=== PATIENT | female | born 1975 | race Two or more races ===

== ENCOUNTER 2019-01-08 08:00 | Outpatient (CLI) | payer MEDICAID | END 2019-01-08 23:59 | disposition home or self-care (01) | LOC: LAB.R 08:00 | PROVIDERS: ATTEND Physician Assistant | DX: R10.2 Pelvic and perineal pain (principal) | CPT/HCPCS: 87086 ==

== ENCOUNTER 2019-01-15 08:00 | Outpatient (CLI) | payer MEDICAID ==
[2019-01-15 13:28] LABS: BASOPHILS % (AUTO) 0.2 %; EOSINOPHILS # (AUTO) 0.1 10^3/uL (0.0-0.7); EOSINOPHILS % (AUTO) 0.9 %; HGB - HEMOGLOBIN 11.7 g/dL (12.0-16.0); LYMPHOCYTES # (AUTO) 1.7 10^3/uL (1.5-3.5); LYMPHOCYTES % (AUTO) 24.4 %; MEAN CORPUSCULAR HEMOGLOBIN 27.2 pg (27.0-31.0); MEAN CORPUSCULAR HGB CONC 33.3 g/dL (32.0-36.0); MEAN CORPUSCULAR VOLUME 81.6 fL (81.0-99.0); MEAN PLATELET VOLUME 7.7 fL (7.9-10.8); MONOCYTES # (AUTO) 0.4 10^3/uL (0.0-1.0); MONOCYTES % (AUTO) 5.6 %; NEUTROPHILS # (AUTO) 4.8 10^3/uL (1.5-6.6); NEUTROPHILS % (AUTO) 68.9 %; PLT - PLATELET COUNT 364 10^3/uL (130-450); RED CELL DISTRIBUTION WIDTH 14.8 % (12.0-15.0); WHITE BLOOD COUNT 6.9 x10^3/uL (4.8-10.8)
[2019-01-15 13:33] LABS: ALBUMIN 3.8 g/dL (3.2-5.5); ALBUMIN/GLOBULIN RATIO 1.1 (1.0-2.2); ALKALINE PHOSPHATASE 77 IU/L (42-121); ALT ALANINE AMINOTRANSFERASE 15 IU/L (10-60); AST ASPARTATE AMINOTRANSFERASE 22 IU/L (10-42); BILIRUBIN,TOTAL 0.6 mg/dL (0.2-1.0); BUN - BLOOD UREA NITROGEN 14 mg/dL (6-20); CALCIUM 9.1 mg/dL (8.5-10.3); CARBON DIOXIDE - CO2 22 mmol/L (21-32); CHLORIDE 106 mmol/L (101-111); CHOL/HDL RATIO 5.5 (<4.4); CHOLESTEROL 159 mg/dL; CREATININE 0.6 mg/dL (0.4-1.0); GFR - MDRD 110 (>89); GLUCOSE 90 mg/dL (70-100); HDL CHOLESTEROL 29 mg/dL; LDL CHOLESTEROL,CALCULATED 90 mg/dL; LDL/HDL RATIO 3.1 (<4.4); SODIUM 137 mmol/L (135-145); TOTAL PROTEIN 7.2 g/dL (6.7-8.2); VLDL CHOLESTEROL 40 mg/dL
[2019-01-15 14:09] LABS: HB2 TOTAL 12.6 g/dL; HEMOGLOBIN A1C 0.41 g/dL; HEMOGLOBIN A1C % 5.1 % (4.6-6.2)
== END 2019-01-15 23:59 | disposition home or self-care (01) ==
LOC: LAB.WCP 08:00
PROVIDERS: ATTEND Physician Assistant
DX: Z00.00 Encounter for general adult medical examination without abnormal findings (principal)
CPT/HCPCS: 36415; 80053; 80061; 83036; 83721; 84443; 85025

== ENCOUNTER 2019-01-29 07:20 | Outpatient (CLI) | payer OTHER ==
--- NOTE | 2019-01-29 10:28 | Ultrasound Report ---
Reason: PELVIC PAIN,LEFT Procedure Date: 01/29/2019 Accession Number: [id number] / [id number] Procedure: US - Pelvic w/Transvaginal CPT Code: FULL RESULT: EXAM: PELVIC ULTRASOUND EXAM DATE: 01/29/2019 08:00 AM. CLINICAL HISTORY: Pelvic pain, left. COMPARISON: CT 06/13/2015. TECHNIQUE: Realtime transabdominal pelvic scan performed to identify the uterus and adnexa and as an overview of other pelvic structures, followed by transvaginal scan to provide greater detail of the uterus and adnexa, with static image documentation. FINDINGS: Uterus: 16.5 x 10.0 x 13.7 cm, volume 1190 cc. Anteverted position. Enlarged in size with globular appearance, fibroid replaced. Masses: A dominant 13.2 x 8.3 x 11.9 cm fundal mass, most likely fibroids detected. Endometrium: 0.6 mm. Very limited partial visualization due to the fibroid. Cervix: Unremarkable. Right Ovary: Not seen, reportedly surgically absent. Left Ovary: 3.3 x 2.0 x 2.7 cm, volume 9.1 cc. Limited visualization with no abnormality detected. Free Fluid: None. Other: None. IMPRESSION: Enlarged fibroid uterus. RADIA
== END 2019-01-29 07:21 | disposition home or self-care (01) ==
LOC: DI 07:20
PROVIDERS: ATTEND Physician Assistant
DX: D25.9 Leiomyoma of uterus, unspecified (principal)
CPT/HCPCS: 76830; 76856

== ENCOUNTER 2019-03-05 10:29 | Outpatient (CLI) | payer OTHER ==
[2019-03-06 12:11] LABS: HEPATITIS B SURFACE ANTIGEN NON-REACTIVE (NON-REACTIVE); HEPATITIS C ANTIBODY NON-REACTIVE (NON-REACTIVE); HIV AG/AB 4TH GEN NON-REACTIVE (NON-REACTIVE)
== END 2019-03-05 10:30 | disposition home or self-care (01) ==
LOC: LAB 10:29
PROVIDERS: ATTEND Obstetrics & Gynecology
DX: R10.2 Pelvic and perineal pain (principal); Z20.2 Contact with and (suspected) exposure to infections with a predominantly sexual mode of transmission
CPT/HCPCS: 36415; 81599; 86592; 86803; 87340; 87389

== ENCOUNTER 2019-11-22 09:36 | Emergency (ER) | payer OTHER ==
[2019-11-22 10:13] LABS: BASOPHILS % (AUTO) 0.4 %; EOSINOPHILS # (AUTO) 0.3 10^3/uL (0.0-0.7); EOSINOPHILS % (AUTO) 3.6 %; HGB - HEMOGLOBIN 13.2 g/dL (12.0-16.0); LYMPHOCYTES # (AUTO) 1.7 10^3/uL (1.5-3.5); LYMPHOCYTES % (AUTO) 24.2 %; MEAN CORPUSCULAR HEMOGLOBIN 28.8 pg (27.0-31.0); MEAN CORPUSCULAR HGB CONC 32.7 g/dL (32.0-36.0); MEAN CORPUSCULAR VOLUME 88.2 fL (81.0-99.0); MEAN PLATELET VOLUME 9.2 fL (7.9-10.8); MONOCYTES # (AUTO) 0.3 10^3/uL (0.0-1.0); MONOCYTES % (AUTO) 4.2 %; NEUTROPHILS # (AUTO) 4.8 10^3/uL (1.5-6.6); NEUTROPHILS % (AUTO) 66.9 %; PLT - PLATELET COUNT 308 10^3/uL (130-450); RED BLOOD COUNT 4.58 10^6/uL (4.20-5.40); WHITE BLOOD COUNT 7.2 x10^3/uL (4.8-10.8)
--- NOTE | 2019-11-22 10:15 | XRAY Report ---
Reason: Chest pain Procedure Date: 11/22/2019 Accession Number: [id number] / [id number] Procedure: XR - Chest 1 View X-Ray CPT Code: 84060 Final Report FULL RESULT: EXAM: CHEST RADIOGRAPHY EXAM DATE: 11/22/2019 10:06 AM. CLINICAL HISTORY: Chest pain. COMPARISON: None. TECHNIQUE: 1 view. FINDINGS: Lungs/Pleura: No focal opacities evident. No pleural effusion. No pneumothorax. Mediastinum: Heart size and mediastinal contour are within normal limits. Other: None. IMPRESSION: 1. No acute disease in the chest. RADIA
[2019-11-22 10:22] LABS: ALBUMIN/GLOBULIN RATIO 1.1 (1.0-2.2); BILIRUBIN,TOTAL 0.6 mg/dL (0.2-1.0); CALCIUM 9.1 mg/dL (8.5-10.3); CREATININE 0.7 mg/dL (0.4-1.0); TOTAL PROTEIN 7.8 g/dL (6.7-8.2)
--- NOTE | 2019-11-22 11:18 | ED Physician Documentation ---
History of Present Illness - Stated complaint Stated Complaint: SOA LEFT ARM PX - Chief complaint Chief Complaint: Cardiac - Additonal information Additional information: This is a 44-year-old female who presents with arm pain for several weeks, as well as shortness of breath. Patient states that she has had some achiness in herLeft forearm for several months, this comes and goes. She has also for last several weeks had intermittent shortness of breath which will completely resolve between episodes. She denies wheezing, And states that when episodes come on she sometimes feels that she can'ttake a deep enough breath. This will resolve and then she will be back to feeling normal. She has had no leg swelling, no history of blood clots, no hemoptysis, no cough, no fever. She denies known cardiac history. The arm pain and shortness of breath seems separate and that they will occur at different times of each other, and sometimes will occur at the same time. This morning she had a feeling of shortness of breath and chest discomfort, and she continued to have the arm symptoms, when she called into clinic they told her to get checked out here in the emergency department. Review of Systems Constitutional: denies: Fever Nose: denies: Rhinorrhea / runny nose Cardiac: reports: Chest pain / pressure Respiratory: reports: Dyspnea GI: denies: Vomiting : denies: Dysuria Skin: denies: Rash Neurologic: denies: Generalized weakness Immunocompromised: denies: Immunocompromised PD PAST MEDICAL HISTORY - Past Medical History Past Medical History: Yes Cardiovascular: None Respiratory: Pneumonia Endocrine/Autoimmune: None GI: None : None HEENT: None Psych: None Musculoskeletal: None Derm: None - Past Surgical History Past Surgical History: No - Present Medications Home Medications: Ambulatory Orders Medication Instructions Recorded Confirmed Ibuprofen [Advil Liqui-Gels] 2 tab QID PRN 04/25/15 04/25/15 Loratadine [Claritin] 1 tab DAILY 04/25/15 04/25/15 - Allergies Allergies/Adverse Reactions: Allergies Allergy/AdvReac Type Severity Reaction Status Date / Time levofloxacin [From Levaquin] Allergy Rash Verified 11/22/19 09:49 - Social History Does the pt smoke?: No Smoking Status: Never smoker Does the pt drink ETOH?: Yes Does the pt have substance abuse?: No - Immunizations Immunizations are current?: Yes - POLST Patient has POLST: No PD ED PE NORMAL - Vitals Vital signs reviewed: Yes - General General: Alert and oriented X 3, No acute distress - HEENT HEENT: PERRL - Neck Neck: Supple, no meningeal sign - Cardiac Cardiac: RRR, No murmur - Respiratory Respiratory: No respiratory distress, Clear bilaterally - Abdomen Abdomen: Normal bowel sounds, Soft, Non tender, Non distended - Derm Derm: Warm and dry - Extremities Extremities: No deformity, No tenderness to palpate, Normal ROM s pain, No edema, No calf tenderness / cord, Other (No edema or erythema of the bilateral lower extremities.) - Neuro Neuro: Alert and oriented X 3, community relations rep 2-12 intact, No motor deficit, No sensory deficit - Psych Psych: Normal mood, Normal affect Results - Vitals Vitals: Oxygen O2 Source Room air - EKG (time done) 9:45 Other comments: Other comments (Rate 78, rhythm sinus, there is no ST segment elevation or depression.. Intervals within normal limits. Slight T wave flattening in aVL) - Labs Labs: Laboratory Tests 11/22/19 11/22/19 11/22/19 09:58 09:58 09:58 WBC 7.2 RBC 4.58 Hgb 13.2 Hct 40.4 MCV 88.2 MCH 28.8 MCHC 32.7 RDW 13.0 Plt Count 308 MPV 9.2 Neut # (Auto) 4.8 Lymph # (Auto) 1.7 [place] # (Auto) 0.3 Eos # (Auto) 0.3 Baso # (Auto) 0.0 Absolute Nucleated RBC 0.00 Nucleated RBC % 0.0 D-Dimer Sodium 138 Potassium 3.4 L Chloride 101 Carbon Dioxide 25 Anion Gap 12.0 BUN 14 Creatinine 0.7 Estimated GFR (MDRD) 91 Glucose 127 H Calcium 9.1 Total Bilirubin 0.6 AST 21 ALT 26 Alkaline Phosphatase 93 Troponin I High Sens < 2.3 L Total Protein 7.8 Albumin 4.0 Globulin 3.8 Albumin/Globulin Ratio 1.1 Lipase 23 11/22/19 09:58 WBC RBC Hgb Hct MCV MCH MCHC RDW Plt Count MPV Neut # (Auto) Lymph # (Auto) [place] # (Auto) Eos # (Auto) Baso # (Auto) Absolute Nucleated RBC Nucleated RBC % D-Dimer < 200.0 L Sodium Potassium Chloride Carbon Dioxide Anion Gap BUN Creatinine Estimated GFR (MDRD) Glucose Calcium Total Bilirubin AST ALT Alkaline Phosphatase Troponin I High Sens Total Protein Albumin Globulin Albumin/Globulin Ratio Lipase - Rads (name of study) CXR Radiology: Other (No acute disease) PD MEDICAL DECISION MAKING - ED course Complexity details: considered differential (PE, ACS, PNA, anxiety, HF, effusion, dysrhtymia) ED course: Pt is well appearing on exam. EKG without signs of acute ischemia or dysrhtyhmia. HS troponin negative and she is low risk for MACE by HEART score. Her symptoms have been present for weeks, so a single troponin is sufficient. PE unlikely given her vital signs and exam and history, but she was tachycardic in triage, D-dimer obtained and negative. She had no hypoxia or tachycardia on ambulation. She is feeling well and asymptomatic at this time. Abdomen is benign. CXR unremarkable. I discussed that I do not see an obvious emergent cause of pt's chest pain, I discussed the need for close outpatient follow up and return precautions and pt was discharged home in very good condition. Departure - Departure Disposition: 01 Home, Self Care Clinical Impression: Shortness of breath Condition: Good Instructions: ED Chest Pain Atypical Unkn Cause Follow-Up: Milka Anaya PA [Primary Care Provider] - Comments: Your labs, images, and tests today looking at your heart and lungs were reassuring, we do not see signs of blood clots, heart strain, pneumonia, or other obvious problems at this time. If you are having worsening please return to the emergency department, otherwise please follow-up with your primary care provider on your symptoms. Discharge Date/Time: 11/22/19 11:52
[2019-11-22 11:34] VITALS: BP 125/71
== END 2019-11-22 11:52 | disposition home or self-care (01) ==
LOC: ED 09:36
DX: R07.89 Other chest pain (principal); R06.02 Shortness of breath; M79.632 Pain in left forearm; R00.0 Tachycardia, unspecified
CPT/HCPCS: 36415; 71045; 80053; 83690; 84484; 85025; 85379; 93005; 99284

== ENCOUNTER 2019-12-03 13:42 | Outpatient (CLI) | payer OTHER ==
--- NOTE | 2019-12-03 15:40 | XRAY Report ---
Reason: LEFT ARM PAIN Procedure Date: 12/03/2019 Accession Number: [id number] / [id number] Procedure: WCP - Shoulder 3 View LT CPT Code: Final Report FULL RESULT: EXAM: LEFT SHOULDER RADIOGRAPHY 3 VIEWS EXAM DATE: 12/03/2019. CLINICAL HISTORY: Chronic left shoulder and biceps pain. COMPARISON: None. TECHNIQUE: AP internal and external rotation and scapular Y views. FINDINGS: Bones: Normal. No fracture or bone lesion. Joints: The glenohumeral and acromioclavicular joints appear normal. Soft tissues: The included left lung is clear. Small irregular calcification in the coracoclavicular ligament adjacent to the clavicle. IMPRESSION: Small irregular calcification in the coracoclavicular ligament adjacent to the clavicle, probably from a previous injury. Otherwise normal examination. RADIA
== END 2019-12-03 23:59 | disposition home or self-care (01) ==
LOC: DI.WCP 13:42
PROVIDERS: ATTEND Physician Assistant
DX: M79.602 Pain in left arm (principal)

== ENCOUNTER 2019-12-15 08:19 | Outpatient (CLI) | payer OTHER ==
--- NOTE | 2019-12-16 14:06 | Ultrasound Report ---
Reason: UTERINE FIBROIDS Procedure Date: 12/15/2019 Accession Number: [id number] / [id number] Procedure: US - Pelvic w/Transvaginal CPT Code: Final Report FULL RESULT: EXAM: PELVIC ULTRASOUND EXAM DATE: 12/15/2019 09:37 AM. CLINICAL HISTORY: Uterine fibroids. COMPARISON: PELVIC W/TRANSVAGINAL 01/29/2019 7:29 AM ABDOMEN/PELVIS W/WO 06/13/2015 2:21 PM. TECHNIQUE: Realtime transabdominal pelvic scan performed to identify the uterus and adnexa and as an overview of other pelvic structures, followed by transvaginal scan to provide greater detail of the uterus and adnexa, with static image documentation. FINDINGS: Uterus: 15.7 x 10.1 x 7.6 cm, volume 628 cc. Anteverted position. Globular enlarged uterus due to fundal fibroid. Masses: There is a large intramural fibroid in the posterior uterine fundus measuring 10.2 x 9.6 x 10.7, previously 13.2 x 8.3 x 11.9 on ultrasound performed 01/29/2019. Endometrium: 2.4 mm. Normal. Cervix: Unremarkable. Right Ovary: Surgically absent by history. Left Ovary: 3.2 x 2.6 x 2.8 cm, volume 12.1 cc. Normal echotexture and blood flow. Free Fluid: None. Other: None. IMPRESSION: Large intramural fibroid in the posterior uterine fundus. This measures slightly decreased in size compared to the prior ultrasound on 01/29/2019. RADIA
== END 2019-12-15 08:20 | disposition home or self-care (01) ==
LOC: DI 08:19
PROVIDERS: ATTEND Obstetrics & Gynecology
DX: D25.1 Intramural leiomyoma of uterus (principal)
CPT/HCPCS: 76830; 76856

== ENCOUNTER 2020-06-09 07:00 | Outpatient (CLI) | payer OTHER | END 2020-06-09 23:59 | disposition home or self-care (01) | LOC: LAB.R 07:00 | PROVIDERS: ATTEND Family Medicine | DX: R30.0 Dysuria (principal) | CPT/HCPCS: 87086; 87181 ==

== ENCOUNTER 2020-06-20 20:47 | Outpatient (CLI) | payer OTHER ==
--- NOTE | 2020-06-21 08:28 | Ultrasound Report ---
PROCEDURE: Pelvic w/Transvaginal INDICATIONS: Uterine fibroid. TECHNIQUE: Real-time scanning was performed of the pelvic organs, with image documentation. Additional endovagi nal scanning was necessary due to incomplete visualization of the adnexal and endometrial structures by transabdominal scanning. COMPARISON: None. FINDINGS: Transabdominal scanning: Limited scanning through the kidneys shows no hydronephrosis. No pathologi c free abdominal or pelvic fluid. Endovaginal scanning: Uterus: Uterus is markedly enlarged measuring approximately 10.9 x 13.6 x 17.7 cm, with a calculated approximate volume of 1373 cc. There is a large uterine fibroid measuring approximately 11 cm near t he fundus. Appearance is similar to 12/15/2019 exam with no significant change in size of the uterus o r fibroids allowing for differences in technique. The endometrium is not well evaluated due to the si ze of uterus and the obscuration by fibroids. Ovaries: Right ovary surgically absent. Left ovary is normal in size and appearance, with 12 physiol ogic/follicular cysts present in the left ovary. IMPRESSION: Large anterior fundal fibroid measuring up to 11 cm, with marked enlargement of the uterus due primar raisa to the fibroid. Right ovary not identified, reportedly surgically absent. Reviewed by: yKle Solis MD on 06/21/2020 8:26 AM PDT Approved by: Kyle Solis MD on 06/21/2020 8:26 AM PDT Station ID: [id number]
== END 2020-06-20 20:48 | disposition home or self-care (01) ==
LOC: DI 20:47
PROVIDERS: ATTEND Obstetrics & Gynecology
DX: D25.9 Leiomyoma of uterus, unspecified (principal)
CPT/HCPCS: 76830; 76856

== ENCOUNTER 2020-06-22 07:00 | Outpatient (CLI) | payer OTHER ==
[2020-06-22 19:46] LABS: CANDIDA GROUP DNA NEGATIVE (NEGATIVE); CANDIDA KRUSEI DNA NEGATIVE (NEGATIVE); TRICHOMONAS VAGINALIS DNA NEGATIVE (NEGATIVE)
== END 2020-06-22 23:59 | disposition home or self-care (01) ==
LOC: LAB.R 07:00
PROVIDERS: ATTEND Obstetrics & Gynecology
DX: N89.8 Other specified noninflammatory disorders of vagina (principal)
CPT/HCPCS: 87661; 87801

== ENCOUNTER 2020-06-23 12:33 | Outpatient (CLI) | payer OTHER ==
[2020-06-23 13:36] LABS: BASOPHILS % (AUTO) 0.3 %; EOSINOPHILS # (AUTO) 0.1 10^3/uL (0.0-0.7); EOSINOPHILS % (AUTO) 1.3 %; HGB - HEMOGLOBIN 13.4 g/dL (12.0-16.0); LYMPHOCYTES # (AUTO) 1.8 10^3/uL (1.5-3.5); LYMPHOCYTES % (AUTO) 20.1 %; MEAN CORPUSCULAR HEMOGLOBIN 29.6 pg (27.0-31.0); MEAN CORPUSCULAR HGB CONC 32.6 g/dL (32.0-36.0); MEAN CORPUSCULAR VOLUME 90.7 fL (81.0-99.0); MEAN PLATELET VOLUME 8.9 fL (7.9-10.8); MONOCYTES # (AUTO) 0.4 10^3/uL (0.0-1.0); MONOCYTES % (AUTO) 4.5 %; NEUTROPHILS # (AUTO) 6.5 10^3/uL (1.5-6.6); NEUTROPHILS % (AUTO) 73.1 %; PLT - PLATELET COUNT 294 10^3/uL (130-450); RED BLOOD COUNT 4.53 10^6/uL (4.20-5.40); RED CELL DISTRIBUTION WIDTH 12.6 % (12.0-15.0); WHITE BLOOD COUNT 8.9 x10^3/uL (4.8-10.8)
== END 2020-06-23 12:34 | disposition home or self-care (01) ==
LOC: LAB 12:33
PROVIDERS: ATTEND Obstetrics & Gynecology
DX: D25.9 Leiomyoma of uterus, unspecified (principal)
CPT/HCPCS: 36415; 85025

== ENCOUNTER 2020-06-28 07:27 | Day surgery (SDC) | payer OTHER ==
--- NOTE | 2020-06-28 06:53 | HISTORY & PHYSICAL EXAMINATION ---
HPI - History of Present Illness HPI Comment/Other: CC: PreOp: hysterectomy HPI: Pt is here today for a preOp consult for a LAVH possible conversion to abdominal hysterectomy ...................................................................JAGRUTI Savage June 22, 2020 1:16 PM Ms Samuels is a 43 yo presents for preop evaluation for possible LAVH vs open hysterectomy. Patient was first seen on 03/05/2019. Las pap was January 2019. Fibroids were noted on exam at that time. She reports that she has been having pain in her left pelvic area. Hx of right sided ovarian teratoma. Pelvic us showed that the uterus measured 16.5x10.0x13.7 with volume of 1190 cm. There was a dominant mass measuring 13.2x8.3x11.9 cm She underwent treatment with Lupron from 04/07 through November 2019. At the time, her surgery was delayed due to COVID and she went off of her Lupron. She had a pelvic us in Nov 2019 that showed her uterus to measure 15.7x10.1x7.6 with a fibroid measuring 10.2x9.6x10.9, previosuly 13.2 x8.3x11.9. She had another dose of Lupron on 05/10/2020 and underwent a repeat us. On 06/20/2020, her us noted that the uterus was basically unchanged from prior us with a uterine fibroid measuring 11 cm in greatest dimension. Has been amenorrheic on Lupron. She presents today for preop evaluation. No change in health hx other than as noted in exam. Allergies: LEVAQUIN (Critical) Medications: LUPRON DEPOT (3-MONTH) 11.25 MG INTRAMUSCULAR KIT (LEUPROLIDE ACETATE (3 MONTH)) Inject one dose IM every 3 months for 2 doses; Route: INTRAMUSCULAR Problems: Preoperative examination (ICD-V72.84) (RDT15-N89.818) Vaginal discharge (ICD-623.5) (IGX33-C63.8) Dysuria (ICD-788.1) (LVV02-D80.0) Subconjunctival hemorrhage, right (ICD-372.72) (QCQ12-S61.31) Exertional shortness of breath (ICD-786.09) (CCS56-Q45.09) Arm pain, left (ICD-729.5) (RIP34-S37.602) Atypical chest pain (ICD-786.59) (MBY24-B70.89) Injectable Depo Lupron (ICD-V25.02) (NMF70-L62.013) Sexually transmitted disease, exposure to (ICD-V01.6) (NPH09-L11.2) Screening visit for sexually trans dis (ICD-V74.5) (JQJ69-H14.3) Fibroids, uterus (ICD-218.9) (VAK66-E63.9) UTI, acute (ICD-599.0) (WVJ92-S68.0) Pelvic pain, left (ICD-789.09) (YAY93-F81.2) Preventative health care (ICD-V70.0) (OYN41-Q84.00) Contraception management (ICD-V25.09) (EPG93-A85.9) Muscle spasm, back (ICD-724.8) (IPV08-D68.830) Back pain, right (ICD-724.5) (DQC44-L16.89) [Family History-CCC] Risk Factors: Smoked Tobacco Use: Never smoker Smokeless Tobacco Use: Never Passive Smoke Exposure: no HIV High Risk Behavior: no Caffeine Use: 1 drinks per day Exercise: no Seatbelt Use: 100 % Sun Exposure: occasionally Alcohol Use: yes Type: beer/wine on occassion Drinks per day: social Drug Use: no Vital Signs: Patient Profile: 44 Years Old Female Height: 60.25 inches Weight: 237 pounds BMI: 46.07 BP sittin / 73 Cuff size: large Vitals Entered By: JAGRUTI Savage (June 22, 2020 1:16 PM) Past Medical History: Terratoma of ovary removed back pain Past Surgical History: [facility] oophorectomy 2015 INFORMATION RESOURCES DIRECTOR Review of Systems ROS Comments: As per HPI, otherwise remaining systems are negative. Physical Constitutional: alert, no acute distress, well hydrated. Head: atraumatic, normocephalic. Cardiovascular: RRR. Respiratory: no respiratory distress, clear to auscultation. Abdomen: nondistended, nontender. Neurologic: normal. Psych: affect and mood appropriate, normal interaction, good eye contact. Vulva: normal appearance, no lesions or masses. Urethra: normal. Bladder: normal. Vagina: normal. copious discharge. Affirm collected Cervix: normal. Uterus: Enlarged, mobile cw 6 weeks size Adnexa: no masses, nontender. surgically absent. Impression & Recommendations: Problem # 1: Preoperative examination (ICD-V72.84) (EQQ46-H30.818) Orders: PRE OP -86383 (CPT-43225) Preop examination for laparoscopic assisted vaginal hysterectomy and salpingectomy with high possibility of conversion to an open procedure We discussed risks, benefits, alternatives. Reviewed all surgical procedures carry risks of bleeding, infection, and damage nearby tissue and organs. Discussed the risk of infection with blood transfusion is relatively low. Risk of HIV is 1 in 2 million nationwide, risk of hepatitis is 1/million nationwide. Reviewed for possibility of transfusion reaction and possible management with medications. She is provided consent for blood transfusion. Reviewed that anatomically speaking that the vagina is full of bacteria. We cannot fully sterilized the vagina, nor would we want to. When the incision is made to release the uterus from the abdomen, a pathway for bacteria into the otherwise sterile abdominal cavity is created. For this reason we will give her IV antibiotics. She denies any allergies to antibiotics. We discussed the anatomical proximity of other organs near the uterus including but not limited to the bladder, ureters, and bowel. As surgeons, we used a number of surgical to techniques to avoid damaging any of these other organs. We reviewed, that despite her best efforts, sometimes injury occurs to these organs. We discussed that this may cause complicated post operative course. We also discussed the HIGH possibility of converting to an open procedure. She provided consent to all of the above. We will proceed to surgery with a scheduled operating room date. Other Orders: Vaginitis Pathogens-Affirm CLINICAL APPLICATION MANAGER III (CPT-89298) LMP: 02/26/2019 Height: 60.25 (06/09/2020 1:09:30 PM) Weight: 237 Gonnorhea: negative (01/08/2019 10:49:24 AM) Chlamydia: negative (01/08/2019 10:49:24 AM) Gonnorrhea: negative (01/08/2019 10:49:24 AM) Chlamydia: negative (01/08/2019 10:49:24 AM) Last Pap: normal (01/08/2019 10:49:24 AM) PMH/PSH - Past Medical History Cardiovascular: positive: None Respiratory: positive: Pneumonia Endocrine/Autoimmune: positive: None GI: positive: None : positive: None HEENT: positive: None Psych: positive: None Musculoskeletal: positive: None Derm: positive: None MRSA Hx?: No - Past Surgical History /INFORMATION RESOURCES DIRECTOR: positive: Oophrectomy Social & Family Hx - Social History Does the pt smoke?: No Smoking Status: Never smoker Does the pt drink ETOH?: Yes Does the pt have substance abuse?: No - POLST Patient has POLST: No Meds/Allgy - Home Medications Home Medications: Ambulatory Orders Medication Instructions Recorded Confirmed Loratadine [Claritin] 1 tab PO DAILY PRN 04/25/15 06/13/20 - Allergies Allergies/Adverse Reactions: Allergies Allergy/AdvReac Type Severity Reaction Status Date / Time levofloxacin [From Levaquin] Allergy Rash Verified 11/22/19 09:49
[~2020-06-28 07:27] MED LIST: BUPIVACAINE 0.25%-EPI 1:200000 PF 30 ML VIAL ONE; METHYLENE BLUE 0.5% 50 MG/10 ML AMPULE ONE; VASOPRESSIN 20 UNIT/ML VIAL ONE
[2020-06-28] MEDS ORDERED: LACTATED RINGERS 1,000 ML IV ONE ×3 (07:41→15:54)
[2020-06-28] MEDS ORDERED: GABAPENTIN 400 MG CAPSULE ONE (07:45)
[2020-06-28] MEDS ORDERED: CELECOXIB 100 MG CAPSULE PO ONE (07:46)
[2020-06-28] MEDS ORDERED: CEFAZOLIN SODIUM IN 0.9 % NACL 2 GM/100 ML BAG IV ONE (07:46)
[2020-06-28] MEDS ORDERED: ACETAMINOPHEN 1,000 MG/100 ML 100 ML IV ONE ×2 (07:46→09:59)
--- NOTE | 2020-06-28 08:03 | ANESTHESIA ---
Pre-Anesthesia VS, & Labs - Diagnosis uterine fibroids - Procedure [facility] Vital Signs: Temp Pulse Resp BP Pulse Ox 36.4 C L 80 16 122/59 L 98 06/28/20 07:54 06/28/20 07:54 06/28/20 07:54 06/28/20 07:54 06/28/20 07:54 Height 5 ft 1 in Weight (kg) 106.2 kg Body Mass Index 37.8 - NPO >8 hours - Is Patient ?: No - Lab Results Lab results reviewed: Yes Home Medications and Allergies Loratadine [Claritin] 1 tab PO DAILY PRN 04/25/15 Allergies/Adverse Reactions: Allergies Allergy/AdvReac Type Severity Reaction Status Date / Time levofloxacin [From Levaquin] Allergy Rash Verified 11/22/19 09:49 Anes History & Medical History - Anesthetic History Anesthesia Complications: reports: No previous complications Family history of Anesthesia Complications: Denies Family history of Malignant Hyperthermia: Denies - Medical History Cardiovascular: reports: None Pulmonary: reports: Pneumonia Gastrointestinal: reports: None Urinary: reports: None Musculoskeletal: reports: None Endocrine/Autoimmune: reports: None Blood Disorders: reports: None Skin: reports: None Smoking Status: Never smoker - Surgical History Gynecologic: Oophrectomy Exam General: Alert, Oriented x3, Cooperative, No acute distress Dental: WNL Mouth Openin Fingerbreadth Neck Mobility: Normal Mallampati classification: II Respiratory: Lungs clear, Normal breath sounds, No respiratory distress, No accessory muscle use Cardiovascular: Regular rate Plan Anesthesia Type: General, Transverse Abdominis Plane (TAP) Block Regional Block: Per Surgeon's request for Post Op pain control Consent for Procedure(s) Verified and Reviewed: Yes Code Status: Attempt Resuscitation ASA classification: 3-Severe systemic disease Is this case an emergency?: No
[2020-06-28 08:18] LABS: BASOPHILS % (AUTO) 0.3 %; EOSINOPHILS # (AUTO) 0.2 10^3/uL (0.0-0.7); EOSINOPHILS % (AUTO) 2.4 %; HGB - HEMOGLOBIN 13.7 g/dL (12.0-16.0); LYMPHOCYTES # (AUTO) 1.8 10^3/uL (1.5-3.5); LYMPHOCYTES % (AUTO) 27.9 %; MEAN CORPUSCULAR HEMOGLOBIN 29.8 pg (27.0-31.0); MEAN CORPUSCULAR HGB CONC 33.3 g/dL (32.0-36.0); MEAN CORPUSCULAR VOLUME 89.6 fL (81.0-99.0); MEAN PLATELET VOLUME 9.1 fL (7.9-10.8); MONOCYTES # (AUTO) 0.4 10^3/uL (0.0-1.0); MONOCYTES % (AUTO) 5.7 %; NEUTROPHILS % (AUTO) 63.2 %; PLT - PLATELET COUNT 300 10^3/uL (130-450); RED CELL DISTRIBUTION WIDTH 12.6 % (12.0-15.0); WHITE BLOOD COUNT 6.4 x10^3/uL (4.8-10.8)
[2020-06-28 08:18] LABS: HCG UR QUAL NEGATIVE
[2020-06-28] MEDS ORDERED: fentaNYL 100 MCG/2 ML VIAL IVP PRN (09:30)
[2020-06-28] MEDS ORDERED: NALOXONE 0.4 MG/ML VIAL IVP PRN (09:30)
[2020-06-28] MEDS ORDERED: MORPHINE 2 MG/ML CARPUJECT IVP PRN (09:30)
[2020-06-28] MEDS ORDERED: ePHEDrine 50 MG/ML VIAL IVP PRN (09:30)
[2020-06-28] MEDS ORDERED: HYDROmorphone 0.5 MG/0.5 ML SYRINGE IVP PRN (09:30)
[2020-06-28] MEDS ORDERED: ATROPINE ABBOJECT 1 MG/10 ML SYRINGE IVP PRN (09:30)
[2020-06-28] MEDS ORDERED: ONDANSETRON 4 MG/2 ML VIAL IVP PRN (09:30)
[2020-06-28] MEDS ORDERED: METOCLOPRAMIDE 10 MG/2 ML VIAL IVP PRN (09:30)
[2020-06-28] MEDS ORDERED: GLYCOPYRROLATE 1 MG/5 ML VIAL IVP ONE (09:59)
[2020-06-28] MEDS ORDERED: ONDANSETRON 4 MG/2 ML VIAL IVP ONE (09:59)
[2020-06-28] MEDS ORDERED: ROCURONIUM 50 MG/5 ML VIAL IVP ONE (09:59)
[2020-06-28] MEDS ORDERED: PROPOFOL 200 MG/20 ML VIAL IVP ONE (09:59)
[2020-06-28] MEDS ORDERED: DEXAMETHASONE 4 MG/ML VIAL IVP ONE (09:59)
[2020-06-28] MEDS ORDERED: MIDAZOLAM 2 MG/2 ML VIAL IVP ONE (09:59)
[2020-06-28] MEDS ORDERED: fentaNYL 100 MCG/2 ML VIAL IVP ONE (09:59)
[2020-06-28] MEDS ORDERED: NEOSTIGMINE 1 MG/1 ML 10 ML MDV IVP ONE (09:59)
[2020-06-28] MEDS ORDERED: LIDOCAINE-MPF 2% 5 ML VIAL IM ONE (09:59)
[2020-06-28] MEDS ORDERED: LACTATED RINGERS 1,000 ML IV SCH (10:00)
[2020-06-28] MEDS ORDERED: BUPIVACAINE 0.25%-EPI 1:200000 PF 10 ML VIAL SUBQ ONE (11:18)
[2020-06-28] MEDS ORDERED: METHYLENE BLUE 0.5% 50 MG/10 ML AMPULE IR ONE ×2 (11:19)
[2020-06-28] MEDS ORDERED: LIDOCAINE JELLY 2% 6 ML JEL.PF.APP UR ONE (15:52)
[2020-06-28] MEDS ORDERED: LIDOCAINE JELLY 2% 6 ML JEL.PF.APP ONE (15:58)
[2020-06-28] MEDS ORDERED: ONDANSETRON ODT 4 MG TABLET TL PRN (16:17)
[2020-06-28] MEDS ORDERED: SIMETHICONE CHEW 80 MG TABLET PO PRN (16:17)
[2020-06-28] MEDS ORDERED: oxyCODONE 5 MG TABLET PO PRN (16:17)
--- NOTE | 2020-06-28 16:20 | OPERATIVE REPORT ---
Operative Report - General Procedure Date: 06/28/20 Planned Procedure: Laparoscopic assisted vaginal hysterectomy with possible conversion to open Pre-Op Diagnosis: Fibroid uterus, dysfunctional uterine bleeding Procedure Performed: Laparoscopic assisted vaginal hysterectomy, left salpingectomy, and cystoscopy Post Op Diagnosis: Same - Procedure Note Primary Surgeon: Dot Ravi MD Secondary Surgeon: Alfred Domínguez MD Anesthesia Provider: Maria M Sanchez CRNA Anesthesia Technique: General ET tube Pathology: Uterus with fibroid and cervix, partially morcellated. Left fallopian tube removed separately from uterus and sent together with uterine specimen. IV Fluids (mL): 2,000 Estimated Blood Loss (mL): 475 Urine Output (mL): 600 Indications: Patient is a 44 yo female with an enlarged fibroid uterus and dysfunctional uterine bleeding. She has undergone more than 6 months of treatment with Depot Lupron and uterus remains enlarged. She desires definitive surgical management for uterine fibroids. Findings: Large uterus with fundus at mid-pelvis. Right ovary and tube are surgically absent. Left fallopian tube and ovary were normal appearing. Complications: None - Other Other Information/Narrative: Risks benefits and alternatives of the procedure were reviewed. Consent was again confirmed. Patient was brought to the operating room and underwent general anesthesia. She was placed in dorsal lithotomy position with legs resting in yellowfin stirrups. SCDs were in place and activated. Cefazolin 2 g IV was administered prior to start of procedure. She was prepped and draped in the usual sterile fashion. Surgical timeout was performed. Bimanual exam was performed. Sterile speculum was placed and Hand Box Folder uterine manipulator was placed, confirming that the Neal ring was flush with the vaginal fornices. An OG tube was placed to desufflate the stomach. An area about 3 cm above the umbilicus was anesthetized with intradermal injection of 0.25% Marcaine. A 5 mm skin incision was made with a scalpel. A 5 mm blunt trocar was inserted under direct visualization using Visiport. Once the port was confirmed to be placed intraperitoneally, the abdomen was insufflated to 15 mmHg with CO2 gas Exploration of the abdomen and pelvis was confirmed that no injury was sustained with placement of the trocar. Two additional 5 mm ports were placed in the right and left lower quadrants, taking care to avoid the epigastric arteries, while under direct visualization via laparoscopic guidance. The abdomen was explored with the laparoscope, with findings as noted. The left Fallopian tube was grasped and elevated and resected from the underlying mesosalpinx with the LigaSure bipolar sealing and cutting device. The uterine ovarian ligament was transected using the LigaSure bipolar device. A bladder flap was mobilized by dividing the round ligaments using the bipolar cutting forceps, and the peritoneum on the vesicouterine fold was incised to mobilize the bladder. Once the colpotomy ring was skeletonized and in position, the uterine arteries were sealed using the bipolar forceps at the level of the colpotomy ring. The right Fallopian tube and ovary were surgically absent. The procedure was repeated on the right aspect of the uterus in the same manner, save the salpingectomy portion and sealing/ligation of the right ovarian ligament. Colpotomy was performed using the harmonic scalpel, resulting in separation of the uterus and attached tubes. The left tube had been transected and removed separately through a lateral port to improve visualization. The uterus was pulled through the vaginal cuff. It was too large for removal in its intact form. A 10 cm endocatch bag was inserted through the vaginal opening in an attempt to contain the uterus within a bag for morcellation. The bag was too small to adequately contain the uterine fundus. The cervix was then bivalved from its location at the vaginal introitus. Taking care to protect the vaginal sidewall and surrounding tissue and organs, the uterus was bivalved to the level of the fibroid. The fibroid tissue was then manually morcellated with a scalpel. The fundus of the uterus sealed the upper portion of the vagina and at no time was morcellated tissue allowed to enter into the pelvis or abdomen. The uterus eventually collapsed within the space created by the internal morcellation of the fibroid and was removed from the pelvis. No morcellated tissue was observed within the vaginal vault. The vaginal vault was then copiously irrigated with sterile water. Attention was then turned to the vaginal cuff closure. The abdomen was desufflated and the abdominal surgical field was covered with sterile towels. A weighted speculum was placed in the vagina. Long Allis clamps were used to grasp the edges of the peritoneum. The peritoneum was closed with a running Pursestring suture using 2-0 Vicryl. The uterosacral ligaments were then grasped with long Allis clamps bilaterally. 0 Vicryl suture was used to transfix the uterosacral ligaments and then fix them to the anterior and posterior aspects of the vaginal cuff bilaterally, thus fixing the uterosacral ligaments of the vaginal fornices. The vaginal cuff closure was then closed in a transverse fashion using interrupted [id number] suture using 0 Vicryl. Good hemostasis was noted. We again returned to the abdominal surgical field after removing outer gloves. The abdomen was again insufflated. The vaginal cuff was visualized internally and noted to have good hemostasis. The abdomen was partially desufflated. Pedicles were observed under decreased pressure and good hemostasis was again confirmed. All instruments were removed from the abdomen. Skin was closed with interrupted subcuticular stitches using 4-0 Monocryl. Dermabond was applied over the suture sites. Cystoscopy was then performed using a 70 degree scope. Ureteral jets were visualized bilaterally and survey of the bladder showed no evidence of surgical trauma or presence of suture within the bladder wall. Bladder was drained, cystoscope was removed, and Farrar catheter was replaced. The final sponge needle and instrument counts were correct at completion of the procedure patient was awakened taken to the postanesthesia care unit in stable condition. Dr Domínguez assisted with retraction, ligation of pedicles on his side of the uterus, morcellation, and cystoscopy. Modifier: Uterine weight was 950g as measured in OR. The size of the uterus rendered this to be a complicated procedure requiring additional OR time.
--- NOTE | 2020-06-28 16:55 | ANESTHESIA POST OP EVALUATION ---
Anesthesia Post Eval - Post Anesthesia Eval Vitals: Last Vital Signs Temp 37.4 C 06/28/20 16:50 Pulse 96 06/28/20 16:50 Resp 17 06/28/20 16:50 BP 125/70 06/28/20 16:50 Pulse Ox 96 06/28/20 16:50 CV Function Including HR & BP: positive: Stable Pain Control: positive: Satisfactory Nausea & Vomiting: positive: Negative Mental Status: positive: Baseline Respiratory Status: Airway Patent Hydration Status: Satisfactory Anesthesia Complications: positive: None
[2020-06-28] MEDS ORDERED: KETOROLAC 30 MG/ML VIAL ONE (17:05)
[2020-06-28] MEDS ORDERED: ONDANSETRON 4 MG/2 ML VIAL ONE (17:05)
[2020-06-28] MEDS ORDERED: HYDROmorphone 0.5 MG/0.5 ML SYRINGE ONE (17:06)
[2020-06-28] MEDS: ACETAMINOPHEN 500 MG TABLET PO SCH (18:25)
[2020-06-28] MEDS: LACTATED RINGERS 1,000 ML IV SCH (18:26)
[2020-06-28] MEDS: KETOROLAC 30 MG/ML VIAL IVP SCH ×2 (18:26→22:23)
[2020-06-28] MEDS: DOCUSATE SODIUM 100 MG CAPSULE PO SCH (20:14)
[2020-06-29] MEDS: ACETAMINOPHEN 500 MG TABLET PO SCH ×2 (01:02→08:17)
[2020-06-29] MEDS: LACTATED RINGERS 1,000 ML IV SCH (01:04)
[2020-06-29] MEDS: KETOROLAC 30 MG/ML VIAL IVP SCH (04:59)
[2020-06-29 05:44] LABS: BASOPHILS % (AUTO) 0.3 %; EOSINOPHILS % (AUTO) 0.1 %; HGB - HEMOGLOBIN 10.8 g/dL (12.0-16.0); LYMPHOCYTES # (AUTO) 1.8 10^3/uL (1.5-3.5); LYMPHOCYTES % (AUTO) 16.9 %; MEAN CORPUSCULAR HEMOGLOBIN 30.1 pg (27.0-31.0); MEAN CORPUSCULAR HGB CONC 32.7 g/dL (32.0-36.0); MEAN CORPUSCULAR VOLUME 91.9 fL (81.0-99.0); MEAN PLATELET VOLUME 9.1 fL (7.9-10.8); MONOCYTES # (AUTO) 0.6 10^3/uL (0.0-1.0); MONOCYTES % (AUTO) 5.3 %; NEUTROPHILS # (AUTO) 8.3 10^3/uL (1.5-6.6); NEUTROPHILS % (AUTO) 76.9 %; PLT - PLATELET COUNT 257 10^3/uL (130-450); RED BLOOD COUNT 3.59 10^6/uL (4.20-5.40); RED CELL DISTRIBUTION WIDTH 12.9 % (12.0-15.0); WHITE BLOOD COUNT 10.8 x10^3/uL (4.8-10.8)
[2020-06-29 07:59] VITALS: BP 105/58
[2020-06-29] MEDS: DOCUSATE SODIUM 100 MG CAPSULE PO SCH (08:17)
[2020-06-29] MEDS ORDERED: ENOXAPARIN 40 MG/0.4 ML SYRINGE SUBQ SCH (09:00)
--- NOTE | 2020-06-29 11:18 | PROVIDER PROGRESS NOTE ---
Subjective - Prog Note Date Prog Note Date: 06/29/20 Prog Note Time: 11:16 - Subjective Subjective: Patient is doing quite well. Up and ambulating. Tolerating po. Pain well managed. Farrar removed and has since voided wiht 22 cc PVR. Objective - Vital Signs/Intake & Output Vital Signs: Vital Signs x48h Temp Pulse Resp BP Pulse Ox 06/29/20 07:58 98.6 F 85 16 105/58 L 99 06/29/20 05:00 98.6 F 96 17 99/47 L 99 Intake & Output: Intake & Output 06/26/20 06/27/20 06/28/20 06/29/20 23:59 23:59 23:59 23:59 Intake Total 2600 2063.333 Output Total 1345 1450 Balance 1255 613.333 - Objective General Appearance: positive: No acute distress Eyes Bilateral: positive: Normal inspection Neck: positive: Nml inspection Respiratory: positive: No respiratory distress Cardiovascular: positive: Regular rate & rhythm Abdomen: positive: Non-tender, No distention, Other (Incisions healing well) Skin: positive: Color nml Extremities: positive: Non-tender Neurologic/Psychiatric: positive: Oriented x3 - Lab Results Fish Bones: 06/29/20 05:06 Other Labs: Lab Results x24hrs 06/29/20 Range/Units 05:06 WBC 10.8 (4.8-10.8) x10^3/uL RBC 3.59 L (4.20-5.40) 10^6/uL Hgb 10.8 L (12.0-16.0) g/dL Hct 33.0 L (37.0-47.0) % MCV 91.9 (81.0-99.0) fL MCH 30.1 (27.0-31.0) pg MCHC 32.7 (32.0-36.0) g/dL RDW 12.9 (12.0-15.0) % Plt Count 257 (130-450) 10^3/uL MPV 9.1 (7.9-10.8) fL Neut # (Auto) 8.3 H (1.5-6.6) 10^3/uL Lymph # (Auto) 1.8 (1.5-3.5) 10^3/uL Sargent # (Auto) 0.6 (0.0-1.0) 10^3/uL Eos # (Auto) 0.0 (0.0-0.7) 10^3/uL Baso # (Auto) 0.0 (0.0-0.1) 10^3/uL Absolute Nucleated RBC 0.00 x10^3/uL Nucleated RBC % 0.0 /100WBC Assessment/Plan - Problem List (1) S/P laparoscopic hysterectomy Impression: Doing well postop Meeting goals for discharge DC to home
== END 2020-06-29 11:49 | disposition home or self-care (01) ==
LOC: SDS 07:27 → MS2 17:30 → SDS 06-29 11:49
PROVIDERS: ATTEND Obstetrics & Gynecology
PROC: 0UT6FZZ Resection of Left Fallopian Tube, Via Natural or Artificial Opening With Percutaneous Endoscopic Assistance (ICD-10-PCS; 2020-06-28)
PROC: 0UT9FZZ Resection of Uterus, Via Natural or Artificial Opening With Percutaneous Endoscopic Assistance (ICD-10-PCS; principal; 2020-06-28 08:30)
DX: D25.9 Leiomyoma of uterus, unspecified (principal); N93.8 Other specified abnormal uterine and vaginal bleeding
CPT/HCPCS: 36415; 58554; 81025; 85025; A9270; J0131; J0690; J1170; J1650; J7120

== ENCOUNTER 2020-07-12 14:38 | Outpatient (CLI) | payer OTHER | END 2020-07-12 14:39 | disposition home or self-care (01) | LOC: COV 14:38 | PROVIDERS: ATTEND Family Medicine | DX: Z20.828 Contact with and (suspected) exposure to other viral communicable diseases (principal) ==

== ENCOUNTER 2021-02-27 15:07 | Outpatient (CLI) | payer OTHER ==
[2021-02-27] MEDS ORDERED: IOPAMIDOL-300 100 ML VIAL ONE (15:29)
[2021-02-27] MEDS ORDERED: IOPAMIDOL-300 50 ML VIAL ONE (15:29)
--- NOTE | 2021-02-27 17:46 | CT Report ---
PROCEDURE: Abdomen/Pelvis W INDICATIONS: LLQ ABD PAIN CONTRAST: IV CONTRAST: Isovue 300 ml: 100 PO CONTRAST: Isovue 300 ml50 TECHNIQUE: After the administration of nonionic contrast, 5 mm thick sections acquired from the diaphragms to th e symphysis. 5 mm thick coronal and sagittal reformats were acquired. For radiation dose reduction, the following was used: automated exposure control, adjustment of mA and/or kV according to patient size. COMPARISON: Prior CT abdomen/pelvis 06/13/2015 FINDINGS: Image quality: Excellent. ABDOMEN: Lung bases: Lung bases are clear. Heart size is normal. Solid organs: Liver and spleen are normal in size and enhancement. Gallbladder appears normal Bili dayana system is non dilated. Pancreas enhances normally. No adrenal nodules. Kidneys demonstrate nor mal size and enhancement, without hydronephrosis. Peritoneum and bowel: Bowel loops demonstrate normal wall thickness and caliber. No free fluid or a ir. Nodes and vessels: No retroperitoneal or mesenteric adenopathy by size criteria. Aorta and inferior vena cava are normal in size. Miscellaneous: No ventral hernias. PELVIS: Genitourinary: Bladder wall thickness is normal. Presumed hysterectomy. Dominant O Miscellaneous: No inguinal hernias or adenopathy. There is no evidence of appendicitis or diverticu litis within the pelvis. Bones: No suspicious bony lesions. No vertebral body compression fractures. IMPRESSION: A source of left lower quadrant pain is not seen. There is no evidence of urinary tract abnormality, diverticulitis or appendicitis. No postsurgical change is found that would indicate appe ndectomy. The uterus appears absent. Reviewed by: Dariusz Rogers MD on 02/27/2021 5:45 PM PDT Approved by: Dariusz Rogers MD on 02/27/2021 5:45 PM PDT Station ID: [id number]
[2021-02-27] MEDS ORDERED: IOPAMIDOL-300 100 ML VIAL IVP ONE (17:47)
[2021-02-27] MEDS ORDERED: IOPAMIDOL-300 50 ML VIAL PO ONE (17:47)
== END 2021-02-27 15:08 | disposition home or self-care (01) ==
LOC: DI 15:07
PROVIDERS: ATTEND Nurse Practitioner Family
DX: R10.32 Left lower quadrant pain (principal)
CPT/HCPCS: 74177; Q9967

== ENCOUNTER 2021-06-19 22:40 | Outpatient (CLI) | payer OTHER | END 2021-06-19 22:41 | disposition EMS.NT | LOC: EMS 22:40 | DX: R05 Cough (principal) ==

== ENCOUNTER 2021-12-13 10:06 | Emergency (ER) | payer OTHER ==
--- NOTE | 2021-12-13 10:38 | ED Physician Documentation ---
PD HPI Fall - Stated complaint Stated Complaint: GLF - Chief complaint Chief Complaint: Back Pain - History obtained from History obtained from: Patient - History of Present Illness Mechanism of injury: Slipped (on icy surface, left foot slipped and right knee bent in valgus stress and then she fell onto buttock, with pain in right groin and sacral/lumbar areas.) Fall distance: Standing position Timing - onset: Today Injury(ies) location: Neck, Back (lower back and pelvis painful with walking and standing. Also right knee pain.). No: Head, Chest, Abdomen Associated symptoms: No: LOC, AMS, Neck pain, Weakness, Paresthesias Worsens with: Movement Contributing factors: No: Anticoagulated Similar symptoms before: Has not had sx before Recently seen: Not recently seen Review of Systems Constitutional: denies: Fever, Chills Nose: denies: Rhinorrhea / runny nose, Congestion Throat: denies: Sore throat Respiratory: denies: Cough : denies: Incontinent Neurologic: denies: Focal weakness, Numbness PD PAST MEDICAL HISTORY - Past Medical History Past Medical History: Yes Cardiovascular: None Respiratory: Pneumonia Endocrine/Autoimmune: None GI: None : None HEENT: None Psych: None Musculoskeletal: None Derm: None - Past Surgical History Past Surgical History: No - Present Medications Home Medications: Ambulatory Orders Medication Instructions Recorded Confirmed Loratadine [Claritin] 1 tab PO DAILY PRN 04/25/15 06/28/20 Acetaminophen [Tylenol Extra 500 - 1,000 mg PO Q8H PRN #90 06/29/20 Strength] tablet Docusate Sodium 100 - 200 mg PO BID PRN #60 capsule 06/29/20 Gabapentin 100 mg PO Q8H #28 capsule 06/29/20 Ibuprofen [Motrin] 600 mg PO Q6H PRN #90 tab 06/29/20 oxyCODONE [Roxicodone] 5 mg PO Q4H PRN #24 tablet 06/29/20 methocarbamoL [Robaxin] 500 mg PO TID PRN #20 tablet 12/13/21 - Allergies Allergies/Adverse Reactions: Allergies Allergy/AdvReac Type Severity Reaction Status Date / Time levofloxacin [From Levaquin] Allergy Rash Verified 06/28/20 08:08 - Social History Does the pt smoke?: No Smoking Status: Never smoker Does the pt drink ETOH?: Yes Does the pt have substance abuse?: No - Immunizations Immunizations are current?: Yes - POLST Patient has POLST: No PD ED PE NORMAL - Vitals Vital signs reviewed: Yes - General General: Alert and oriented X 3, Well developed/nourished, Other (seems uncomfortable) - HEENT HEENT: Atraumatic - Neck Neck: Supple, no meningeal sign, No bony TTP - Back Back: No CVA TTP, Other (tender lower lumbar midline and in sacral area. Some at rami areas, more to the right. ) - Derm Derm: Normal color, Warm and dry - Extremities Extremities: Other (right inguinal area pain with ROM of the hip. Right knee stable without laxity on stress testing. Cruciate testing without pain. Tender right parapatellar. collateral stress with some pain on valgus but no laxity. No bony tenderness. ) - Neuro Neuro: Alert and oriented X 3, No motor deficit, Normal speech Results - Vitals Vitals: Vital Signs - 24 hr 12/13/21 12/13/21 10:12 13:18 Temperature 36.6 C 98.4 C H Heart Rate 78 70 Respiratory 16 14 Rate Blood Pressure 129/71 127/61 O2 Saturation 99 100 Oxygen O2 Source Room air - Rads (name of study) lumbar and pelvic CT Radiology: Prelim report reviewed (no fractures nor acute findings. There is L4- 5 disc protrusion.), See rad report Departure - Departure Disposition: 01 Home, Self Care Clinical Impression: Fall due to ice or snow, Knee strain, Inguinal muscle strain, Contusion of lower back Condition: Stable Instructions: ED Sprain Strain Lumbar, ED Sprain Knee Collateral Ligaments Follow-Up: KEYLA PEREIRA, MSN, [employer] [Primary Care Provider] - Prescriptions: methocarbamoL [Robaxin] 500 mg PO TID PRN #20 tablet PRN Reason: Spasms Comments: Your knee sounds like a sprain and I would expect it to be sore with movement for the next couple of days at least. Your pelvis and back do not show any acute fractures or acute abnormalities. There are some degenerative changes in the lower spine and mild disc protrusion in the lower lumbar area which are common incidental findings. Unlikely to be contributing to your symptoms today. It sounds likely just muscular pains from the fall and some bruising from where he landed. Rest off work today and possibly tomorrow. Tylenol ibuprofen if needed for pains. You can add Robaxin muscle relaxant if needed for spasms if they develop. I wrote a prescription for you if you need. Recheck if not improving well over the next several days. Forms: Activity restrictions Discharge Date/Time: 12/13/21 13:20
[2021-12-13] MEDS ORDERED: ACETAMINOPHEN 325 MG TABLET PO STA (10:48)
--- NOTE | 2021-12-13 12:12 | CT Report ---
PROCEDURE: LUMBAR SPINE WO INDICATIONS: fall with low back/pelvis pain TECHNIQUE: Noncontrast 3 mm thick sections acquired from the T12 level to the sacrum. Sagittal and coronal refo rmats were constructed. For radiation dose reduction, the following was used: automated exposure co ntrol, adjustment of mA and/or kV according to patient size. COMPARISON: Correlation is made with the accompanying pelvis CT, 12/13/2021. Correlation is also made with the prior abdomen and pelvis CT, 02/27/2021. FINDINGS: Image quality: Excellent. Bones: No acute vertebral body compression fractures. No suspicious lytic or blastic bony lesions. Central spinal caliber is of normal overall caliber. No pars defects. Minimal retrolisthesis is seen at the L3-L4 level. T12-L1: Normal in appearance. L1-L2: Normal in appearance. L2-L3: Normal in appearance. L3-L4: No significant abnormality is seen. L4-L5: The disc height is relatively well preserved. Moderate disc bulge is seen at this level. A superimposed central disc protrusion is seen. Moderate facet hypertrophy is seen. Moderate bilat eral neural foraminal narrowing is seen. Moderate central canal narrowing is seen. L5-S1: No significant abnormality can be seen at this level. Degenerative changes can be seen of the sacroiliac joints, including vacuum phenomenon. Soft tissues: No retroperitoneal masses or hematomas. Visualized aorta is normal in caliber. IMPRESSION: No jimmy, acute abnormality can be seen on the CT images. Lower lumbar spine degenerative changes are seen, which are worst at the L4-L5 level. Sacroiliac joint degenerative changes are also seen. Reviewed by: Denilson Marshall MD on 12/13/2021 11:11 AM [facility] Approved by: eDnilson Marshall MD on 12/13/2021 11:11 AM [facility] Station ID: [id number]
--- NOTE | 2021-12-13 12:18 | CT Report ---
PROCEDURE: PELVIS WO INDICATIONS: fall with low back/pelvis pain TECHNIQUE: Noncontrast 3 mm axial sections acquired through the bony pelvis, with coronal and sagittal reformatt ing. For radiation dose reduction, the following was used: automated exposure control, adjustment of mA and/or kV according to patient size. COMPARISON: Correlation is made with the capping lumbar spine CT, 12/13/2021. Correlation is also mad e with the prior abdomen and pelvis CT, 02/27/2021. FINDINGS: Image quality: Excellent. Bones: No displaced fracture can be seen. No sacral or coccyx fractures can be seen. No fractures of the bones of the pelvis are detected. No proximal femur fracture can be seen. There is no dislocatio n. No suspicious lytic or blastic lesions are seen. Degenerative changes are seen of the visualized lower lumbar spine. Degenerative changes are also see n of the sacroiliac joints. No jimmy bony ankylosis can be seen. Vacuum phenomenon can be seen within both sacroiliac joints. Soft tissues: No dilated loops of small bowel are seen. No free air or free fluid can be seen. No si gnificant colonic abnormality can be seen. Minimal diverticulosis is seen. Apparent supracervical hysterectomy change can be seen. Please correlate with known patient history. No adnexal masses are seen on either side. IMPRESSION: Negative for displaced fracture. Degenerative changes are seen, including involving the sacroiliac joints. Reviewed by: Denilson Marshall MD on 12/13/2021 11:16 AM [facility] Approved by: Denilson Marshall MD on 12/13/2021 11:16 AM [facility] Station ID: [id number]
[2021-12-13 13:19] VITALS: BP 127/61
== END 2021-12-13 13:20 | disposition home or self-care (01) ==
LOC: ED 10:06
DX: S86.911A Strain of unspecified muscle(s) and tendon(s) at lower leg level, right leg, initial encounter (principal); S39.011A Strain of muscle, fascia and tendon of abdomen, initial encounter; W00.0XXA Fall on same level due to ice and snow, initial encounter
CPT/HCPCS: 72131; 72192; 99282; 99284; A9270

== ENCOUNTER 2021-12-22 09:19 | Outpatient (CLI) | payer OTHER ==
[2021-12-22 13:53] LABS: BASOPHILS % (AUTO) 0.5 %; EOSINOPHILS # (AUTO) 0.1 10^3/uL (0.0-0.7); EOSINOPHILS % (AUTO) 0.7 %; HCT - HEMATOCRIT 40.6 % (37.0-47.0); HGB - HEMOGLOBIN 13.1 g/dL (12.0-16.0); LYMPHOCYTES # (AUTO) 1.6 10^3/uL (1.5-3.5); LYMPHOCYTES % (AUTO) 19.6 %; MEAN CORPUSCULAR HEMOGLOBIN 29.6 pg (27.0-31.0); MEAN CORPUSCULAR HGB CONC 32.3 g/dL (32.0-36.0); MEAN CORPUSCULAR VOLUME 91.6 fL (81.0-99.0); MEAN PLATELET VOLUME 11.5 fL (7.9-10.8); MONOCYTES # (AUTO) 0.4 10^3/uL (0.0-1.0); MONOCYTES % (AUTO) 4.9 %; NEUTROPHILS % (AUTO) 74.1 %; PLT - PLATELET COUNT 382 10^3/uL (130-450); RED BLOOD COUNT 4.43 10^6/uL (4.20-5.40); RED CELL DISTRIBUTION WIDTH 12.6 % (12.0-15.0); WHITE BLOOD COUNT 8.1 x10^3/uL (4.8-10.8)
[2021-12-22 14:18] LABS: ALBUMIN 4.3 g/dL (3.2-5.5); ALBUMIN/GLOBULIN RATIO 1.2 (1.0-2.2); ALKALINE PHOSPHATASE 83 IU/L (42-121); ALT ALANINE AMINOTRANSFERASE 30 IU/L (10-60); AST ASPARTATE AMINOTRANSFERASE 25 IU/L (10-42); BILIRUBIN,TOTAL 0.7 mg/dL (0.2-1.0); BUN - BLOOD UREA NITROGEN 15 mg/dL (6-20); CALCIUM 9.1 mg/dL (8.5-10.3); CARBON DIOXIDE - CO2 24 mmol/L (21-32); CHLORIDE 104 mmol/L (101-111); CHOL/HDL RATIO 5.5 (<4.4); CHOLESTEROL 181 mg/dL; CREATININE 0.7 mg/dL (0.4-1.0); GFR - MDRD 90 (>89); GLUCOSE 93 mg/dL (70-100); HDL CHOLESTEROL 33 mg/dL; LDL CHOLESTEROL,CALCULATED 116 mg/dL; LDL/HDL RATIO 3.5 (<4.4); POTASSIUM 4.1 mmol/L (3.5-5.0); SODIUM 138 mmol/L (135-145); TOTAL PROTEIN 7.9 g/dL (6.7-8.2); TRIGLYCERIDES 161 mg/dL; VLDL CHOLESTEROL 32 mg/dL
[2021-12-22 14:35] LABS: THYROID STIMULATING HORMONE 2.24 uIU/mL (0.34-5.60)
[2021-12-22 14:40] LABS: PROLACTIN 5.93 ng/mL
[2021-12-22 19:37] LABS: ESTIMATED AVERAGE GLUCOSE 100 mg/dL (70-100); HEMOGLOBIN A1c% 5.1 % (4.27-6.07)
== END 2021-12-22 09:20 | disposition home or self-care (01) ==
LOC: LAB.N 09:19
PROVIDERS: ATTEND Physician Assistant
DX: Z13.9 Encounter for screening, unspecified (principal); Z13.220 Encounter for screening for lipoid disorders; Z13.1 Encounter for screening for diabetes mellitus; N64.52 Nipple discharge; Z13.29 Encounter for screening for other suspected endocrine disorder
CPT/HCPCS: 36415; 80053; 80061; 82306; 83036; 83721; 84146; 84443; 85025

== ENCOUNTER 2022-01-15 11:15 | Outpatient (CLI) | payer OTHER ==
--- NOTE | 2022-01-15 17:37 | XRAY Report ---
PROCEDURE: Ankle 3 View LT INDICATIONS: ANKLE PAIN TECHNIQUE: 3 views of the ankle were acquired. COMPARISON: None FINDINGS: Bones: No fractures or dislocations. Ankle mortise is normally aligned. 15.0:80 (05 is seen. No ramiro picious bony lesions. Soft tissues: No tibiotalar joint effusion. Achilles tendon appears normal. IMPRESSION: Ankle mortise is intact. No fracture or dislocation. Calcaneal enthesophyte. Reviewed by: Ag Santiago MD on 01/15/2022 5:35 PM PDT Approved by: Ag Santiago MD on 01/15/2022 5:35 PM PDT Station ID: [id number]
== END 2022-01-15 23:59 | disposition home or self-care (01) ==
LOC: DI.WOS 11:15
PROVIDERS: ATTEND Physician Assistant
DX: M77.32 Calcaneal spur, left foot (principal)